=== PATIENT | female | born 1945 | race Caucasian/White ===

== ENCOUNTER 2017-01-10 08:14 | Observation (INO) | payer OTHER ==
[2017-01-10] MEDS ORDERED: NS 500 ML IV ONE ×2 (08:19→13:21)
[2017-01-10] MEDS ORDERED: ONDANSETRON 4 MG/2 ML VIAL IVP ONE (08:19)
[2017-01-10] MEDS ORDERED: MIDAZOLAM 2 MG/2 ML VIAL IVP ONE (08:22)
[2017-01-10] MEDS ORDERED: MIDAZOLAM 2 MG/2 ML VIAL ONE (08:23)
--- NOTE | 2017-01-10 08:28 | EDPHY ---
H & P Time Seen by Provider: 01/10/17 08:16 HPI/ROS: HPI Possible seizure. Altered mental status. 71-year-old female from home by ambulance. Patient was having Tea at the kitchen counter. Her significant other was next to her. At 7:45 a.m. she started having shaking in her hands. She then leaned over and partially collapsed [id number]. The friend then lowered her to the ground slowly. She did not hit her head. It is unclear if there was loss of consciousness. Since this time she has been confused and not following commands appropriately. She does have dementia but is rational and conversive. She does not have a seizure history. EMS reports no motor weakness. Blood sugar per EMS is 190. ROS: Unable to obtain secondary to patient's altered mental status. Past medical history: Dementia. Anxiety. Social history: Lives with significant other. Nonsmoker. No alcohol. Physical Exam: General Appearance: Alert, agitated, eyes open, tracks with eyes. Moving all 4 extremities. Groans intermittently. This patient appears well-hydrated and well-nourished. Head: Normocephalic atraumatic. Eyes: Pupils equal and round at 3-2 mm bilaterally, no pallor or injection. No lid edema, erythema or injection. ENT, Mouth: Mucous membranes are moist. The pharyngeal tissues are unremarkable. No edema or swelling. No asymmetry suggestive of abscess. No erythema or exudates. No tongue lacerations or abrasions. Respiratory: There are no retractions, lungs are clear to auscultation with good air movement bilaterally. Cardiovascular: Regular rate and rhythm. No murmur. Gastrointestinal: Abdomen is soft and nontender, no masses, bowel sounds normal. No focal tenderness at McBurney's point. No Travis sign. Neurological: Motor sensory function is grossly intact. Cranial nerves are grossly intact. Skin: Warm and dry, no rashes. Musculoskeletal: Neck is supple and nontender. Extremities are symmetrical. All joints range without pain or impingement. Psychiatric: No agitation. No depression. Database: EKG: EKG time is 10:45 a.m.; EKG shows a narrow complex sinus tachycardia with ventricular rate of 115. PACs noted. Low voltage noted. The SD, QRS, QT intervals are within normal limits. There are no ST-T wave changes indicative of ischemic or injury pattern. No evidence of right heart strain. Interpreted by me. Imaging: CT scan of head without contrast: Negative for acute pathology. Results discussed with Dr. Alvino Cullen. Diffusion-weighted MRI without contrast brain: Procedures: Emergency department course: IV placed. She was placed on a manager cardiac. EKG performed and reviewed by myself. Secondary to her agitation she was given 1 mg of IV Versed. I-STAT creatinine and glucose obtained. She was sent for CT neuro imaging. 10:00 a.m., patient re-evaluated. She became agitated in CT and pulled out her IV. She was returned to her room after the noncontrast CT scan was done. Her neurologic Assessment is unchanged from above. Secondary to her agitation she was given 10 mg of intramuscular Haldol. Her roommate and significant other reports that she did take Xanax this morning. She has also had an agitated delirium associated with Ativan in the past. 10:30 a.m., patient re-evaluated. More relaxed and comfortable at this time after IM Haldol. Repeat neurologic Assessment unchanged. No motor deficit. Patient sedated from above medication. IV was re-established. EKG being performed. Neurology paged. 10:35 a.m., spoke with hospitalist. Patient accepted for admission to the step- down unit by Dr. Russ Kramer. 10:45 a.m., spoke with on-call neurologist Dr. Torres Peguero. He will consult on this patient. He recommends obtaining a a diffusion-weighted noncontrast MRI of the brain. This has been ordered. Patient will be sent for this study as soon as possible. 11:20 a.m., patient re-evaluated. Patient resting comfortably at this time. Repeat neurologic Assessment is unchanged from prior. MRI of the brain is pending at this time. Discussed plan for admission to the hospitalist service with the patient's significant other. All of her questions were answered. Results of MRI will be followed up on by the hospitalist service as well as Dr. Torres Peguero. The patient's remaining emergency department course under my care has been uneventful. She was admitted in stable condition to the hospitalist service. Differential Diagnosis: The differential diagnosis on this patient includes but is not limited to seizure with postictal state, TIA, CVA, syncope of unclear etiology, medication reaction. This represents a partial list of diagnoses considered. These considerations are based on history, physical exam, past history, reassessment and diagnostic testing. Constitutional: Initial Vital Signs Temperature (C) 36.3 C 01/10/17 08:39 Heart Rate 96 01/10/17 08:39 Respiratory Rate 15 01/10/17 08:39 Blood Pressure 125/87 H 01/10/17 08:39 O2 Sat (%) 95 01/10/17 08:39 O2 Delivery Mode Nasal Cannula O2 (L/minute) 3 Allergies/Adverse Reactions: No Known Allergies Allergy (Verified 01/10/17 08:58) Home Medications: Medication Instructions Recorded ALPRAZolam [Xanax 0.25 MG (*)] 0.25 mg PO TID PRN #30 tab 01/10/17 Herbals/Supplements -Info Only 1 ea PO DAILY 01/10/17 Memantine HCl [Namenda Xr] 28 mg PO HS 01/10/17 Medical Decision Making - Data Points Laboratory Results: Laboratory Results 01/10/17 08:40 01/10/17 08:40 Medications Given: Discontinued Medications Haloperidol Lactate (Haldol Injection) 5 mg IVP EDNOW ONE Stop: 01/10/17 09:18 Last Admin: 01/10/17 09:26 Dose: Not Given Haloperidol Lactate (Haldol Injection) 10 mg IM Q6HRS PRN PRN Reason: Agitation Stop: 07/09/17 09:21 Last Admin: 01/10/17 09:27 Dose: 10 mg Sodium Chloride (Ns) 500 mls @ 0 mls/hr IV ONCE ONE; Wide Open PRN Reason: Protocol Stop: 01/10/17 08:20 Last Admin: 01/10/17 10:50 Dose: 500 mls Sodium Chloride (Ns) 500 mls @ 1,500 mls/hr IV ONCE ONE Stop: 01/10/17 13:40 Last Admin: 01/10/17 13:41 Dose: 500 mls Midazolam HCl (Versed) 1 mg IVP EDNOW ONE Stop: 01/10/17 08:23 Last Admin: 01/10/17 08:49 Dose: 1 mg Ondansetron HCl (Zofran) 4 mg IVP EDNOW ONE Stop: 01/10/17 08:20 Last Admin: 01/10/17 10:50 Dose: 4 mg Departure - Departure Disposition: [facility] Acute Clinical Impression: Altered mental status Condition: Fair
[2017-01-10] MEDS ORDERED: IOPAMIDOL (ISOVUE 370) 100 ML BTL IV ONE (08:35)
[2017-01-10 08:55] LABS: % IMMATURE GRANULYOCYTES 0.4 % (0.0-1.1); ABSOLUTE IMMATURE GRANULOCYTES 0.03 10^3/uL (0.00-0.10); ADD DIFF? NO; ADD MORPH? NO; ADD SCAN? NO; ATYPICAL LYMPHOCYTE FLAG 0 (0-99); FRAGMENT RBC FLAG 0 (0-99); HEMATOCRIT 41.8 % (38.0-47.0); HEMOGLOBIN 14.3 g/dL (12.6-16.3); LEFT SHIFT FLG 0 (0-99); LIPEMIA HEMOLYSIS FLAG 90 (0-99); MEAN CELL HEMOGLOBIN 32.9 pg (27.9-34.1); MEAN CELL HEMOGLOBIN CONCENTR. 34.2 g/dL (32.4-36.7); MEAN CELL VOLUME 96.3 fL (81.5-99.8); MEAN PLATELET VOLUME 9.3 fL (8.7-11.7); PLATELET CLUMPS FLAG 0 (0-99); PLATELET COUNT 240 10^3/uL (150-400); RED BLOOD CELL COUNT 4.34 10^6/uL (4.18-5.33); RED CELL DISTRIBUTION WIDTH 12.1 % (11.5-15.2)
[2017-01-10 09:10] LABS: ANION GAP 12 mEq/L (8-16); CALCIUM 9.4 mg/dL (8.5-10.4); CARBON DIOXIDE 20 mEq/l (22-31); CHLORIDE 105 mEq/L (97-110); CREATININE 0.7 mg/dL (0.6-1.0); GLOMERULAR FILTRATION RATE > 60; GLUCOSE 125 mg/dL (70-100); POTASSIUM 4.6 mEq/L (3.5-5.2); SODIUM 137 mEq/L (134-144)
[2017-01-10] MEDS ORDERED: HALOPERIDOL LACT 5 MG/ML INJ IVP ONE (09:17)
[2017-01-10] MEDS ORDERED: HALOPERIDOL LACT 5 MG/ML INJ IM PRN (09:22)
--- NOTE | 2017-01-10 10:46 | CPEKG ---
Heart Rate: 115 RR Interval: 522 P-R Interval: 160 QRSD Interval: 80 QT Interval: 328 QTC Interval: 454 P [place]: 49 QRS [place]: -23 T Wave [place]: 18 EKG Severity - ABNORMAL ECG - EKG Impression: SINUS TACHYCARDIA EKG Impression: ATRIAL PREMATURE COMPLEX EKG Impression: BORDERLINE LEFT AXIS DEVIATION EKG Impression: CONSIDER ANTERIOR INFARCT EKG Impression: BORDERLINE T ABNORMALITIES, ANTERIOR LEADS Electronically Signed By: Aramis Mas 10-Jan-2017 15:34:09
[2017-01-10 10:47] LABS: COLOR PALE YELLOW; LEUKOCYTE ESTERASE,URINE NEGATIVE (NEGATIVE); NITRITE,URINE NEGATIVE (NEGATIVE)
[2017-01-10 10:52] LABS: RBC,URINE NONE SEEN /hpf (0-3); WBC,URINE NONE SEEN /hpf (0-3)
[2017-01-10 11:23] VITALS: BP 118/82
[2017-01-10 11:33] LABS: ETHANOL SERUM < 10 mg/dL (0-10)
[2017-01-10] MEDS ORDERED: ALPRAZolam 0.25 MG TAB PO PRN (13:20)
[2017-01-10] MEDS ORDERED: ONDANSETRON 4 MG/2 ML VIAL IVP PRN (13:21)
[2017-01-10] MEDS ORDERED: ACETAMINOPHEN 325 MG TAB PO PRN (13:21)
--- NOTE | 2017-01-10 14:15 | GHP ---
[f rep st] HISTORY AND PHYSICAL DATE OF ADMISSION: 01/10/2017 CHIEF COMPLAINT: Syncope. HISTORY OF PRESENT ILLNESS: This is a 71-year-old female, who was brought in by her partner and MD Clementina GREER after having syncopal episode. All history is obtained through her partner, as the patient has si gnificant dementia and is not currently providing any history. I am told that she typically has some mild twitches/tremors in the morning. She seemed to be doing this worse than normal this morning. She then slumped forward on the counter, slowly slumped to the ground, and her partner laid her down carefully and put something under her head. She considered just waiting for her to wake up, though t he patient was much less oriented than normal at that time. Because of this, she called 911. There was no significant rhythmic shaking or seizure activity, although there was the twitching as above. In the emergency room during CT, she became agitated and pulled out her IV. She was given 10 mg of I M Haldol because of the agitation. When I am seeing her, she is much more somnolent. PAST MEDICAL/SURGICAL HISTORY: 1. Dementia. 2. Anxiety. MEDICATIONS: Please see medication reconciliation. ALLERGIES: No known drug allergies. SOCIAL HISTORY: She lives with her partner. She is a nonsmoker. She does not drink. FAMILY HISTORY: This was reviewed and noncontributory. REVIEW OF SYSTEMS: Unobtainable secondary to her mental status. PHYSICAL EXAM: VITAL SIGNS: Blood pressure 118/82, heart rate has been between 96 and 113, respirat ion rate 18, saturating at 92% on room air, temperature is 36.3. GENERAL: The patient is a pleasant female who is somewhat confused, not really answering questions. Does not appear to be any distress . HEENT: Normocephalic, atraumatic. CARDIOVASCULAR: Regular rate and rhythm. No murmurs, rubs or gallops. PULMONARY: Lungs clear to auscultation bilaterally. ABDOMEN: Soft, nontender, nondisten ded. SKIN: No rash. : No Etienne. NEUROLOGIC: She is alert, but she is not really oriented. sp has a nonfocal neurologic exam. PSYCHIATRIC: Unobtainable. LABS: CBC is normal. Bicarb is 20. TSH is 3.8. Glucose 125. Urinalysis negative. Tox screen is negative. DATA: 1. I personally viewed and interpreted her EKG. This shows poor R-wave progression in precordial le ads. Nothing acutely ischemic. 2. I reviewed her head CT scan, which shows moderate atrophy. IMPRESSION AND PLAN: 1. This is a 71-year-old female with an episode of syncope and significant underlying dementia. Syncope: Very difficult to ascertain exactly what happened. Initial workup is relatively unremarkab le. For neurologic issues, though, she does have significant advanced dementia. Would also consider cardiac issues given her poor R-wave progression. I discussed this extensively with her MD CURTIS and significant other, who feel that they would not really want any additional workup at this time. Disc ussed that they might consider outpatient palliative care to avoid repeat unnecessary hospitalization . They are much more focused on keeping her comfortable and would ideally like to take her home late r today, if possible. Because of this, I will do no further workup at this time. I think this is ap propriate given the overall clinical picture. 1. Advanced dementia: She is a high risk for delirium here. She is now quite somnolent after recei ving 10 mg of IM Haldol. We will continue her memantine and have her follow up as an outpatient. 2. Code status is do not resuscitate. /[id number]/MODL
--- NOTE | 2017-01-10 14:40 | GCON ---
[f rep st] CONSULTATION NEUROLOGIC CONSULTATION REFERRING PHYSICIAN: Russ Kramer MD HISTORY OF PRESENT ILLNESS: The patient is a 71-year-old woman who has a history of dementia, probab ly combination of Alzheimer's and vascular dementia for about 8 years, which has been progressive, an d she is at the state of near total dependence on activities of daily living, although she can feed h erself. Sometimes she can dress herself, and she can usually go to the bathroom on her own, but has very impaired short-term memory, and limited conversational skills, and poor insight. She periodical ly can become agitated. This morning she had gotten up and had an episode where she became somewhat more lethargic and slumped to the ground. Her partner was with her and helped her down. She did not strike her head. There was never any definitive seizure activity, but she seemed to have a bit of a blank stare and a little bit of twitching of muscles. She came to the emergency room for evaluation and has been stabilized with a negative head CT. She was admitted for monitoring. They say she is getting better, but still a little sedated after getting 10 mg of intramuscular Haldol. The patient cannot provide any history herself. Her partner is a very good historian and explained that the alek ent does not have any known seizures. She is simply wanting to keep her as comfortable and safe as p ossible. She has a history of anxiety, for which Xanax helps, and she can become agitated and someti mes aggressive. She has been taking Namenda, but they are questioning whether she will stay on that skilled nursing at this point. PAST MEDICAL HISTORY: As outlined above. No smoking or alcohol. 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 REVIEW OF SYSTEMS: Unremarkable, except for that noted above. PHYSICAL EXAMINATION: VITAL SIGNS: Blood pressure is 118/82, pulse of 100, temperature 36.3 axillar y, respiratory rate of 18. GENERAL: She is well developed, in no acute distress. EYES: Clear. NE CK: Supple. NEUOLOGIC: She is lethargic with brief eye opening, but mostly sedated. She has some vocalizations, which I cannot understand usually. Few words were expressed. She does not know the n richard or cannot express some of her friends and caregivers. She is not consistently following command s, but she followed some commands like opening her eyes. She would not follow my commands to move th e extremities, but spontaneously moves them without any evidence of focal findings. She seems to loc yeni to touch, although it is a little unreliable for detail. IMPRESSION: This visit was predominantly counseling regarding the condition and review of strategies and the best way to move forward. I discussed this with Dr. Kramer as well. This patient has adva nced dementia and is at high risk for developing delirium in the hospital. I do not know exactly wha t happened today, but it sounds like a syncopal episode with perhaps syncopal type seizure phenomena, but no classic seizures, and not highly risk for recurrent seizure phenomena. Syncope is certainly possible. I do not think she had a TIA or stroke. Therefore, think it is appropriate to discontinue plans for imaging and further workup, and they are perfectly comfortable with this and would like to send her home. The total unit time on this case was 50 minutes. /[id number]/MODL
--- NOTE | 2017-01-10 15:45 | ASMTCMCOM ---
CM Note CM Note Notes: Patient admitted after a syncopal episode at home. She has progressive dementia and is dependent for almost all ADLs. I spoke w her partner Yesica and another friend, and they wish to take patient home rather than risk her becoming even more disoriented in the hospital. Patient is very well supported at home by her partner and other 24 hour caregivers. She has a follow-up appointment with her neurologist next week, and they might begin a conversation of palliative care. CM available if family decides they need any support or services. Date Signed: 01/10/2017 03:44 PM Electronically Signed By:Sol Ibrahim RN
[2017-01-10 16:01] VITALS: PULSE 115; RESP 19; TEMP 98.6; O2SAT 98
--- NOTE | 2017-01-10 18:16 | GDS ---
[f rep st] DISCHARGE SUMMARY DIAGNOSES: 1. Dementia. 2. Fall versus syncope. 3. Tachycardia. 4. Anxiety. HOSPITAL COURSE: This is a 71-year-old female who was admitted with likely syncope. There was some question of tremors versus seizure activity. Overall history is very difficult as the patient has ad vanced dementia, sometimes remembers her primary caregivers and family at baseline but not always. S he does not provide any history. This was witnessed by her partner. She was seen by Neurology who d id not recommend any empiric treatment for seizures. I discussed this at length with her partner who is her MD CURTIS. She has been persistently tachycardic which could indicate certainly multiple underlying problems pre disposing her to syncope. Given her overall health status and advanced dementia, she feels like she would like to take her home without doing any further workup. She would not want any cardiac interve ntions. She did not tolerate a head CT very well, thus a CT angio looking for a PE would be very dif ficult as well. I have been very clear that we certainly may be missing something though I think giv en the goals of care this is the most appropriate treatment as she will certainly become delirious as an inpatient overnight. She follows very closely with Dr. Holloway. I have recommended discussing pa lliative care or hospice with her primary care physician. /[id number]/MODL
[2017-01-10] MEDS ORDERED: MEMANTINE HCL 28 MG PO SCH (21:00)
--- NOTE | 2017-01-11 16:56 | ASDISCHSUM ---
Discharge Information Plan Status:Home with No Needs Medically Cleared to Leave: Discharge Date:01/10/2017 05:28 PM CM D/C Disposition:Home, Routine, Self-Care ADT D/C Disposition:Home, Routine, Self-Care Projected Discharge Date:01/10/2017 05:28 PM Transportation at D/C: Discharge Delay Reason: Follow-Up Date:01/10/2017 05:28 PM Discharge Slot: Final Diagnosis: Placement Information Patient Contact Information Contact Name:MELISSA Relationship:Life Partner Address:[address] [place], [place] [address] City:[place] Alternate Phone: [facility]/Zip Code:[place] [address] Email: Financial Information Financial Class:HMO and PPO Plans Primary Plan Desc:[employer] P[employer] Primary Plan Number:[id number] Secondary Plan Desc: Secondary Plan Number: Assessment Information [facility] CM Progress Note CM Note CM Note Notes: Patient admitted after a syncopal episode at home. She has progressive dementia and is dependent for almost all ADLs. I spoke w her partner Yesica and another friend, and they wish to take patient home rather than risk her becoming even more disoriented in the hospital. Patient is very well supported at home by her partner and other 24 hour caregivers. She has a follow-up appointment with her neurologist next week, and they might begin a conversation of palliative care. CM available if family decides they need any support or services. Date Signed: 01/10/2017 03:44 PM Electronically Signed By:Sol Ibrahim RN Intervention Information Intervention Type:*Incorrect Registration Date of Service:01/10/2017 03:28 PM Patient Type:Observation Staff Member:ROSIE Lawrence Dina Hours: Discipline: Severity: Comment:
== END 2017-01-10 17:28 | disposition home or self-care (01) ==
LOC: EDUNIT# → INTOOBSV 10:33 → F2N 12:16
PROVIDERS: ADMIT Student in an Organized Health Care Education/Training Program; ATTEND Student in an Organized Health Care Education/Training Program
DX: R41.82 Altered mental status, unspecified (principal); R00.0 Tachycardia, unspecified; E86.9 Volume depletion, unspecified; F41.9 Anxiety disorder, unspecified; F03.90 Unspecified dementia, unspecified severity, without behavioral disturbance, psychotic disturbance, mood disturbance, and anxiety
CPT/HCPCS: 70450; 93005; 96372; 96374; 96375; 99285; G0378; 80305; 82947-QW; G0480; J2250; J2405; Q9967

== ENCOUNTER 2017-07-01 06:19 | Emergency (ER) | payer OTHER ==
[2017-07-01 06:29] VITALS: BP 128/88; PULSE 84; RESP 16; TEMP 98.1; O2SAT 97
--- NOTE | 2017-07-01 06:29 | EDPHY ---
H & P Source: Patient, EMS Exam Limitations: Clinical condition - Personal History Tetanus Vaccine Date: < 10 YEARS - Medical/Surgical History Hx Asthma: No Hx Chronic Respiratory Disease: No Hx Diabetes: No Hx Cardiac Disease: No Hx Renal Disease: No Hx Cirrhosis: No Hx Alcoholism: No Hx HIV/AIDS: No Hx Splenectomy or Spleen Trauma: No Other PMH: heart arrythmia 20 years ago, Alzheimers - Social History Smoking Status: Unknown if ever smoked Time Seen by Provider: 07/01/17 07:00 HPI/ROS: HPI CHIEF COMPLAINT: "Found outside Banging on a house door" HISTORY OF PRESENT ILLNESS: Patient is a 72-year-old female, she has advanced dementia, history of anxiety, 911 was called by local residence as some he was on the front porch bagging on neuro door. EMS and police found her on somebody' s doorstep banging on the door. They did not know her name or Medical history of brought her to the emergency room for evaluation. Upon arrival to the emergency room she is pleasant, she has normal vital signs. She is cooperative however appears to be demented. We were able to register appropriately. Able to look up her old medical history. She appears not to be ill or in any distress. She has normal vital signs. Plan will be to contact her family to come and get her. It is unclear if she wanted to way from her local residence tonight. Past Medical History: Advanced dementia, anxiety Past Surgical History: No recent surgery Social History: Denies drugs alcohol tobacco. Family History: Unknown ROS REVIEW OF SYSTEMS: Extremely limited to patient's mental state. Exam Constitutional triage nursing summary reviewed, vital signs reviewed, awake/ alert. Eyes normal conjunctivae and sclera, EOMI, PERRLA. HENT normal inspection, atraumatic, moist mucus membranes, no epistaxis, neck supple/ no meningismus, no raccoon eyes. Respiratory clear to auscultation bilaterally, normal breath sounds, no respiratory distress, no wheezing. Cardiovascular rate normal, regular rhythm, no murmur, no edema, distal pulses normal. Gastrointestinal soft, non-tender, no rebound, no guarding, normal bowel sounds, no distension, no pulsatile mass. Genitourinary no CVA tenderness. Musculoskeletal no midline vertebral tenderness, full range of motion, no calf swelling, no tenderness of extremities, no meningismus, good pulses, neurovascularly intact. Skin pink, warm, & dry, no rash, skin atraumatic. Neurologic alert and oriented x1, moves all 4 extremities equally, motor intact, sensory intact, CN II-XII intact, normal cerebellar, normal vision, normal speech. Psychiatric normal mood/affect. Heme/Lymph/Immune no lymphadenopathy. Differential Diagnosis: Includes but is not limited to in a particular order dementia, altered mental status, delirium Medical Decision Making: Plan for this patient will try to contact family for them to come and pick her up and make sure she is at her baseline neurological status. Re-evaluation: 0700AM: Patient signed over to Dr. Dent at 7am Shift-change a patient may be safely discharged family picks her up and states that she is at her baseline mental status. (Joaquin Peter) Constitutional: Initial Vital Signs Temperature (C) 36.7 C 07/01/17 06:27 Heart Rate 84 07/01/17 06:27 Respiratory Rate 16 07/01/17 06:27 Blood Pressure 128/88 H 07/01/17 06:27 O2 Sat (%) 97 07/01/17 06:27 O2 Delivery Mode Room Air Allergies/Adverse Reactions: No Known Allergies Allergy (Verified 01/10/17 08:58) Home Medications: Medication Instructions Recorded ALPRAZolam [Xanax 0.25 MG (*)] 0.25 mg PO TID PRN #30 tab 01/10/17 Herbals/Supplements -Info Only 1 ea PO DAILY 01/10/17 Memantine HCl [Namenda Xr] 28 mg PO HS 01/10/17 Medical Decision Making Other Provider: 0700 care assumed by me from Dr. Peter pending arrival of family member to take the patient home. 0724 patient's partner is here. Patient is at baseline. Will take the patient home. No medical issues at this time. (Aba Dent) Departure - Departure Disposition: Home, Routine, Self-Care Clinical Impression: Dementia Condition: Good Instructions: Dementia (ED) Referrals: Patient,NotPresent [Primary Care Provider] - As per Instructions
== END 2017-07-01 07:25 | disposition home or self-care (01) ==
LOC: EDUNIT#
DX: F03.90 Unspecified dementia, unspecified severity, without behavioral disturbance, psychotic disturbance, mood disturbance, and anxiety (principal)